=== PATIENT | female | born 1985 | race Caucasian/White ===

== ENCOUNTER 2019-03-16 17:29 | Emergency (ER) | payer OTHER ==
[2019-03-16 18:18] VITALS: BMI 29.9
[2019-03-16 18:48] LABS: SQUAMOUS EPITHIAL 3 /hpf (0-5); URINE BACTERIA RARE (<OCC); URINE BILIRUBIN NEGATIVE (NEGATIVE); URINE BLOOD NEGATIVE (NEGATIVE); URINE CLARITY CLEAR (Clear); URINE COLOR YELLOW (YELLOW); URINE GLUCOSE (UA) NEG (NEGATIVE); URINE LEUKOCYTE ESTERASE TRACE Leu/uL (Negative); URINE PROTEIN NEGATIVE (NEGATIVE); URINE UROBILINOGEN 0.2-1.0 mg/dL (0.2-1.0)
[2019-03-16 19:25] LABS: BASO % 0.2 % (0.0-2.0); EOS # 0.1 K/uL (0.0-0.7); EOS % 1.2 % (0.0-4.0); HEMOGLOBIN 10.9 g/dL (12.0-16.0); LYMPH # 1.6 K/uL (1.0-4.3); LYMPH % 16.7 % (20.0-40.0); MEAN CELL VOLUME 92.9 fl (81.0-99.0); MEAN CORPUSCULAR HEMOGLOBIN 31.6 pg (27.0-31.0); MEAN CORPUSCULAR HGB CONC 34.1 g/dL (33.0-37.0); MONO # 0.7 K/uL (0.0-0.8); MONO % 7.6 % (0.0-10.0); NEUT # 6.9 K/uL (1.8-7.0); NEUT % 74.3 % (50.0-75.0); NRBC % 0.2 % (0.0-0.0); RBC 3.43 Mil/uL (3.80-5.20); WHITE BLOOD COUNT 9.3 K/uL (4.8-10.8)
[2019-03-16 19:33] LABS: ALB/GLOB RATIO 1.1 (1.0-2.1); ALBUMIN 3.7 g/dL (3.5-5.0); ALT/SGPT 21 U/L (9-52); AST/SGOT 21 U/L (14-36); BLOOD UREA NITROGEN 7 mg/dl (7-17); GFR NON-AFRICAN AMERICAN > 60
--- NOTE | 2019-03-16 20:12 | OBHP ---
Datetime: 03/16/2019 18:10 Admit Comment, IP Provider: 34 y/o , 24.1 weeks with EDC of 07/05/19 presents to [facility] with right s ided rib pain. Rib pain started yesterday, sharp, intermittent, non radiating and worsens by touching . Denies any acute trauma. Reports vomiting 2 times everyday. Denies CTx, LOF, VB. Endorses good feta l movements. Reports intermittent headache controlled by Tylenol. Denies other CP, SOB, back pain or urinary symptoms. care: Dr. Garza OBHx: G1: C section at 37 weeks, HELLP syndrome, Preeclampsia G2: Current PMHx: Denies PSHx: CS 2014, Cholecystectomy 2015 Allergies: NKDA Meds: Unisome, B6, PNVs F/H: Denies SocialHx: Denies PE Gen: NAD Chest: RRR, S1S2 present Lungs: CTAB Abdomen: R sided rib tenderness, soft, gravid, ND Ext: No edema A/P: 34 y/o , 24.1 weeks with EDC of 07/05/19 presents to [facility] with right sided rib pain. - CBC, CMP, LDH, UA Stat - EFM and toco - Monitor vitals Case discussed with Dr. Sky Ortiz, PGY1 The patient was seen with the resident I agree with the note patient's labs reviewed within normal limits patient to follow-up with Dr. GARZA in 1 week Pelvic Type - PN: Not Done Extremities - PN: Normal Abdomen - PN: Normal Back - PN: Normal Breast - PN: Not Done Lungs - PN: Normal Heart - PN: Normal Thyroid - PN: Not Done Neurologic - PN: Normal HEENT - PN: Normal General - PN: Normal EGA AdmitDate IP: 24.1 Vital Signs Provider: Reviewed; Within Normal Limits IP Chief Complaint: Maternal discomfort Genitourinary Exam: Normal DTRs - PN: Not Done
[2019-03-17 04:18] VITALS: BP 111/62; PULSE 69
== END 2019-03-16 20:00 | disposition home or self-care (01) ==
LOC: H.EROB2 17:29
DX: O21.0 Mild hyperemesis gravidarum (principal); O26.92 Pregnancy related conditions, unspecified, second trimester; R07.9 Chest pain, unspecified; Z3A.24 24 weeks gestation of pregnancy